=== PATIENT | female | born 1985 | race Caucasian/White ===

== ENCOUNTER 2017-10-08 16:34 | Inpatient (IN) | payer OTHER ==
[2017-10-08] MEDS ORDERED: LIDOCAINE 1% (MPF) 30 ML INJ INJ (21:30)
[2017-10-08] MEDS ORDERED: CARBOPROST 250 MCG INJ IM (21:30)
[2017-10-08] MEDS ORDERED: BUTORPHANOL 2 MG INJ IV (21:30)
[2017-10-08] MEDS ORDERED: ACETAMINOPHEN/CODEINE #3 TAB PO (21:30)
[2017-10-08] MEDS ORDERED: OXYTOCIN 30 UNITS/LR 500 ML IV (21:30)
[2017-10-08] MEDS ORDERED: MISOPROSTOL 200 MCG TAB PR (21:30)
[2017-10-08] MEDS ORDERED: IBUPROFEN 600 MG TAB PO (21:30)
[2017-10-08] MEDS ORDERED: METHYLERGONOVINE 0.2 MG INJ IM (21:30)
[2017-10-08] MEDS ORDERED: BUTORPHANOL 1 MG INJ IV (21:30)
[2017-10-08] MEDS: LACTATED RINGER'S 1,000 ML IV* ×2 (23:34→23:35)
[2017-10-09 00:03] LABS: ADD MAN DIFF? NO
[2017-10-09 00:10] LABS: WHITE BLOOD COUNT 11.4 10^3/ul (4.8-10.8)
[2017-10-09 00:10] LABS: BASOPHILS % 0.3 % (0.0-2.0); EOSINOPHILS % 0.2 % (0.0-7.0); HEMATOCRIT 37.9 % (37.0-47.0); HEMOGLOBIN 13.3 g/dl (12.0-16.0); LYMPHOCYTES # 1.8 10^3/ul (0.8-2.9); MEAN CORPUSCULAR HEMOGLOBIN 33.9 pg (29.0-33.0); MEAN CORPUSCULAR HGB CONC 35.1 g/dl (32.0-37.0); MEAN CORPUSCULAR VOLUME 96.7 fl (82.0-101.0); MEAN PLATELET VOLUME 10.1 fl (7.4-10.4); MONOCYTE # 0.6 10^3/ul (0.3-0.9); MONOCYTES % 5.3 % (0.0-11.0); NEUTROPHIL # 8.8 10^3/ul (1.6-7.5); NEUTROPHILS % 77.3 % (39.0-77.0); PLATELET COUNT 222 10^3/UL (140-415); RED BLOOD COUNT 3.92 10^6/ul (4.20-5.40); RED CELL DISTRIBUTION WIDTH 12.4 % (11.5-14.5)
[2017-10-09 00:33] LABS: ALANINE AMINOTRANSFERASE 23 IU/L (13-69); ALBUMIN 3.3 g/dl (3.3-4.9); ALBUMIN/GLOBULIN RATIO 1.22; ALKALINE PHOSPHATASE 119 IU/L (42-121); ANION GAP 16 (8-16); ASPARTATE AMINO TRANSFERASE 22 IU/L (15-46); BILIRUBIN,INDIRECT 0.2 mg/dl (0-1.1); BILIRUBIN,TOTAL 0.2 mg/dl (0.2-1.3); BLOOD UREA NITROGEN 11 mg/dl (7-20); CALCIUM 8.6 mg/dl (8.4-10.2); CARBON DIOXIDE 22 mmol/L (21-31); CHLORIDE 103 mmol/L (97-110); CREATININE 0.63 mg/dl (0.44-1.00); GLUCOSE 116 mg/dl (70-220); POTASSIUM 3.3 mmol/L (3.5-5.1); SODIUM 138 mmol/L (135-144)
[2017-10-09 00:53] LABS: INR 0.89; PARTIAL THROMBOPLASTIN TIME 25.2 Sec (25.0-35.0); PROTIME 12.1 Sec (11.9-14.9); PT RATIO 0.9
[2017-10-09 01:02] LABS: HEPATITIS B SURFACE ANTIGEN NEGATIVE (NEGATIVE)
[2017-10-09] MEDS: CALCIUM CARBONATE 500 MG CHEW TAB PO (02:47)
[2017-10-09] MEDS: LACTATED RINGER'S 1,000 ML IV* ×3 (06:35→22:59)
[2017-10-09] MEDS: MISOPROSTOL 25 MCG CAPSULE PO ×3 (12:34→22:07)
[2017-10-09 21:34] LABS: RAPID PLASMA REAGIN NONREACTIVE (NR)
[2017-10-09] MEDS ORDERED: ALBUTEROL HFA 8 GM INHALER INH (22:00)
[2017-10-10] MEDS: MISOPROSTOL 25 MCG CAPSULE PO ×3 (02:07→10:10)
[2017-10-10] MEDS: LACTATED RINGER'S 1,000 ML IV* ×3 (06:02→22:25)
[2017-10-10] MEDS: OXYTOCIN 30 UNITS/LR 500 ML IV (14:27)
[2017-10-10 18:18] LABS: AMPHETAMINE/METHAMPHETAMINE Negative (NEGATIVE); BARBITURATES Negative (NEGATIVE); BENZODIAZEPINES Negative (NEGATIVE); CANNABINOIDS Negative (NEGATIVE); COCAINE Negative (NEGATIVE); OPIATES Negative (NEGATIVE)
[2017-10-11] MEDS: LACTATED RINGER'S 1,000 ML IV* ×5 (04:00→22:32)
[2017-10-11] MEDS ORDERED: FENTAnyl 2MCG/ML-ROPIV 0.2% 100 ML (21:52)
[2017-10-11] MEDS ORDERED: NALOXONE (0.4 MG/ML) INJ IV (22:30)
[2017-10-12] MEDS: LACTATED RINGER'S 1,000 ML IV* ×4 (05:03→16:03)
[2017-10-12] MEDS: ACETAMINOPHEN 325 MG TAB PO ×3 (05:19→14:35)
[2017-10-12] MEDS: FENTAnyl 2MCG/ML-ROPIV 0.2% 100 ML BAG EPI ×2 (06:38→13:25)
[2017-10-12] MEDS ORDERED: CEFAZOLIN 1 GM INJ (07:00)
[2017-10-12] MEDS: OXYTOCIN 30 UNITS/LR 500 ML IV ×3 (07:09→23:45)
[2017-10-12] MEDS ORDERED: CLINDAMYCIN 900 MG/D5W (PMX) 50 ML IVPB (09:29)
[2017-10-12] MEDS: CLINDAMYCIN 900 MG/D5W (PMX) 50 ML IVPB ×5 (09:35→23:44)
[2017-10-12] MEDS: DEXTROSE 5%-LR 1,000 ML IV ×2 (12:29→14:40)
[2017-10-12] MEDS: ONDANSETRON 4 MG INJ IV ×2 (14:28→23:15)
[2017-10-12] MEDS: GENTAMICIN 120 MG/NS (PMX) 100 ML IVPB (17:27)
[2017-10-12] MEDS ORDERED: SODIUM BICARBONATE (IV ADD) 50 ML (18:56)
[2017-10-12] MEDS ORDERED: LIDOCAINE 2% (SDV) 5 ML INJ (18:56)
[2017-10-12] MEDS ORDERED: FENTAnyl 50 MCG/ML VIAL ×2 (18:57→19:34)
[2017-10-12] MEDS ORDERED: OXYTOCIN 30 UNITS/LR 500 ML IV ×5 (19:04→22:30)
[2017-10-12] MEDS ORDERED: ONDANSETRON 4 MG INJ (19:11)
[2017-10-12] MEDS ORDERED: DEXAMETHASONE 4 MG/ML 1 ML INJ (19:11)
[2017-10-12] MEDS ORDERED: FAMOTIDINE 20 MG INJ (19:11)
[2017-10-12] MEDS ORDERED: MIDAZOLAM 1 MG/ML 2 ML INJ (19:30)
[2017-10-12] MEDS ORDERED: KETAMINE (100 MG/ML) 5 ML VIAL (19:37)
[2017-10-12] MEDS ORDERED: morphine SULFATE/PF (10 MG/10 ML) INJ (20:02)
[2017-10-12] MEDS ORDERED: HYDROmorphONE 0.5 MG/0.5 ML SYG IV (20:30)
[2017-10-12] MEDS ORDERED: NALBUPHINE HCL (10 MG/1 ML) INJ IV (20:30)
[2017-10-12] MEDS ORDERED: NALOXONE (0.4 MG/ML) INJ IV (20:30)
[2017-10-12] MEDS ORDERED: ZOLPIDEM 5 MG TAB PO (20:30)
[2017-10-12] MEDS ORDERED: DIPHENHYDRAMINE 50 MG INJ IV (20:30)
[2017-10-12] MEDS: KETOROLAC 30 MG INJ IV (21:32)
[2017-10-12] MEDS: CEFAZOLIN 1 GM/50 ML (PMX) 50 ML IVPB (22:30)
[2017-10-12] MEDS ORDERED: CARBOPROST 250 MCG INJ IM ×2 (22:30)
[2017-10-12] MEDS ORDERED: MISOPROSTOL 200 MCG TAB PR ×2 (22:30)
[2017-10-12] MEDS ORDERED: CEFAZOLIN 1 GM/50 ML (PMX) 50 ML IVPB (22:30)
[2017-10-12] MEDS ORDERED: METHYLERGONOVINE 0.2 MG INJ IM ×2 (22:30)
[2017-10-12] MEDS ORDERED: HYDROCODONE/APAP (5/325) TAB PO (22:30)
[2017-10-12] MEDS ORDERED: OXYCODONE/ACETAMINOPHEN (5/325) TAB PO (22:30)
[2017-10-12] MEDS: LANOLIN 7 GM TUBE TOP (23:16)
[2017-10-13] MEDS ORDERED: CLINDAMYCIN 900 MG/D5W (PMX) 50 ML IVPB
[2017-10-13] MEDS: HYDROmorphONE 0.5 MG/0.5 ML SYG IV (01:34)
[2017-10-13] MEDS: OXYTOCIN 30 UNITS/LR 500 ML IV ×7 (04:55→21:40)
[2017-10-13] MEDS: CLINDAMYCIN 900 MG/D5W (PMX) 50 ML IVPB ×4 (05:38→23:55)
[2017-10-13] MEDS: KETOROLAC 30 MG INJ IV ×2 (08:25→18:54)
[2017-10-13 08:44] LABS: ADD MAN DIFF? NO
[2017-10-13] MEDS: SENNA/DOCUSATE NA (8.6MG/50MG) TAB PO ×2 (08:48→20:58)
[2017-10-13 08:51] LABS: ABNORMAL IP MESSAGE 1; BASOPHILS % 0.1 % (0.0-2.0); HEMATOCRIT 33.8 % (37.0-47.0); HEMOGLOBIN 11.5 g/dl (12.0-16.0); LYMPHOCYTES # 1.4 10^3/ul (0.8-2.9); LYMPHOCYTES % 5.9 % (15.0-51.0); MEAN CORPUSCULAR VOLUME 97.1 fl (82.0-101.0); MEAN PLATELET VOLUME 10.5 fl (7.4-10.4); MONOCYTES % 4.3 % (0.0-11.0); NEUTROPHIL # 20.8 10^3/ul (1.6-7.5); NEUTROPHILS % 87.9 % (39.0-77.0); PLATELET COUNT 162 10^3/UL (140-415); RED BLOOD COUNT 3.48 10^6/ul (4.20-5.40); RED CELL DISTRIBUTION WIDTH 12.2 % (11.5-14.5)
[2017-10-13 08:51] LABS: WHITE BLOOD COUNT 23.7 10^3/ul (4.8-10.8)
[2017-10-13 09:07] LABS: POSITIVE DIFF @See below
[2017-10-13] MEDS: IBUPROFEN 600 MG TAB PO ×2 (18:00→23:55)
[2017-10-14] MEDS: OXYCODONE/ACETAMINOPHEN (5/325) TAB PO ×4 (03:25→22:37)
[2017-10-14] MEDS: OXYTOCIN 30 UNITS/LR 500 ML IV ×2 (03:48→06:25)
[2017-10-14] MEDS: IBUPROFEN 600 MG TAB PO ×3 (05:34→17:28)
[2017-10-14] MEDS: CLINDAMYCIN 900 MG/D5W (PMX) 50 ML IVPB ×3 (05:35→17:28)
[2017-10-14 07:20] LABS: ADD MAN DIFF? NO
[2017-10-14 07:25] LABS: BASOPHILS % 0.1 % (0.0-2.0); EOSINOPHILS # 0.1 10^3/ul (0.0-0.5); EOSINOPHILS % 0.5 % (0.0-7.0); HEMATOCRIT 30.9 % (37.0-47.0); HEMOGLOBIN 10.6 g/dl (12.0-16.0); LYMPHOCYTES # 2.2 10^3/ul (0.8-2.9); LYMPHOCYTES % 15.3 % (15.0-51.0); MEAN CORPUSCULAR HEMOGLOBIN 33.2 pg (29.0-33.0); MEAN CORPUSCULAR HGB CONC 34.3 g/dl (32.0-37.0); MEAN CORPUSCULAR VOLUME 96.9 fl (82.0-101.0); MEAN PLATELET VOLUME 10.7 fl (7.4-10.4); MONOCYTE # 0.8 10^3/ul (0.3-0.9); MONOCYTES % 5.2 % (0.0-11.0); NEUTROPHIL # 11.2 10^3/ul (1.6-7.5); NEUTROPHILS % 77.9 % (39.0-77.0); PLATELET COUNT 168 10^3/UL (140-415); RED BLOOD COUNT 3.19 10^6/ul (4.20-5.40); RED CELL DISTRIBUTION WIDTH 12.2 % (11.5-14.5)
[2017-10-14 07:25] LABS: WHITE BLOOD COUNT 14.4 10^3/ul (4.8-10.8)
[2017-10-14] MEDS: SENNA/DOCUSATE NA (8.6MG/50MG) TAB PO ×2 (08:39→22:36)
[2017-10-15] MEDS: CLINDAMYCIN 900 MG/D5W (PMX) 50 ML IVPB ×2 (00:23→05:50)
[2017-10-15] MEDS: IBUPROFEN 600 MG TAB PO ×3 (00:23→12:11)
[2017-10-15] MEDS: OXYCODONE/ACETAMINOPHEN (5/325) TAB PO (04:44)
[2017-10-15 08:28] LABS: ADD MAN DIFF? NO
[2017-10-15 08:33] LABS: BASOPHILS % 0.2 % (0.0-2.0); EOSINOPHILS # 0.1 10^3/ul (0.0-0.5); EOSINOPHILS % 0.8 % (0.0-7.0); HEMATOCRIT 32.1 % (37.0-47.0); LYMPHOCYTES # 1.8 10^3/ul (0.8-2.9); MEAN CORPUSCULAR HEMOGLOBIN 33.3 pg (29.0-33.0); MEAN CORPUSCULAR HGB CONC 34.3 g/dl (32.0-37.0); MEAN CORPUSCULAR VOLUME 97.3 fl (82.0-101.0); MEAN PLATELET VOLUME 10.3 fl (7.4-10.4); MONOCYTE # 0.7 10^3/ul (0.3-0.9); MONOCYTES % 5.4 % (0.0-11.0); NEUTROPHIL # 9.4 10^3/ul (1.6-7.5); NEUTROPHILS % 77.6 % (39.0-77.0); PLATELET COUNT 187 10^3/UL (140-415); RED CELL DISTRIBUTION WIDTH 12.1 % (11.5-14.5)
[2017-10-15 08:33] LABS: WHITE BLOOD COUNT 12.1 10^3/ul (4.8-10.8)
[2017-10-15] MEDS: DIPHTH/TET/ACEL PERTUSS (ADULT) 0.5 ML VIAL IM* (09:00)
[2017-10-15] MEDS: SENNA/DOCUSATE NA (8.6MG/50MG) TAB PO (12:11)
[2017-10-15] MEDS: HYDROCODONE/APAP (5/325) TAB PO (13:10)
== END 2017-10-15 17:00 | disposition home or self-care (01) | DRG 765 ==
LOC: OBT 16:34 → L-D 16:35 → OBT 20:30 → PP1 10-12 22:45 → L-D 20:30
PROC: 10D00Z1 Extraction of Products of Conception, Low, Open Approach (ICD-10-PCS; principal; 2017-10-12 19:30)
DX: O76 Abnormality in fetal heart rate and rhythm complicating labor and delivery (principal); O40.3XX0 Polyhydramnios, third trimester, not applicable or unspecified; O69.81X0 Labor and delivery complicated by cord around neck, without compression, not applicable or unspecified; Z37.0 Single live birth; Z3A.38 38 weeks gestation of pregnancy
CPT/HCPCS: 76815; 76818; 80053; 80307; 85025; 85610; 85730; 86592; 86850; 86900; 86901; 87340; 99464